=== PATIENT | male | born 1995 | race African-American/Black ===

== ENCOUNTER 2018-03-30 13:30 | Emergency (ER) | payer MEDICAID, SELFPAY | END 2018-03-30 14:31 | disposition home or self-care (01) | LOC: ERS 13:30 | DX: H66.92 Otitis media, unspecified, left ear (principal); J45.901 Unspecified asthma with (acute) exacerbation; F17.210 Nicotine dependence, cigarettes, uncomplicated | CPT/HCPCS: 94640; J7620 ==

== ENCOUNTER 2018-11-03 13:30 | Emergency (ER) | payer OTHER, SELFPAY ==
[2018-11-03] MEDS ORDERED: Ketorolac Tromethamine 30 MG/ML VIAL ONE (13:47)
--- NOTE | 2018-11-03 14:06 | RAD ---
XR Forearm Rt 2 View STANDARD: 11/03/2018 1:41 PM CLINICAL INDICATION: Pain injury COMPARISON: None. FINDINGS: Fracture:No fracture. Arthropathy:None of significance. Incidental findings:None of significance. IMPRESSION: 1. No acute osseous abnormality.
--- NOTE | 2018-11-03 14:08 | RAD ---
XR Hand Rt 3 View STANDARD: 11/03/2018 1:33 PM CLINICAL INDICATION: Injury, pain COMPARISON: None. FINDINGS: Displaced fracture involving base of fourth metacarpal with intra-articular extension of the MCP join t. Fracture fragmentation projects adjacent the dorsal aspect of the distal carpal row, donor site not d iscretely visualized although may relate to the adjacent hamate bone. IMPRESSION: Fracture of the base of the fourth metacarpal. Adjacent an avulsed fracture fragment dorsal to the carpus, as described above.
[2018-11-03] MEDS ORDERED: HYDROcodone/Acetaminophen 5/325 mg Tablet ONE (15:02)
== END 2018-11-03 15:15 | disposition home or self-care (01) ==
LOC: ERS 13:30
DX: S62.314A Displaced fracture of base of fourth metacarpal bone, right hand, initial encounter for closed fracture (principal); S62.101A Fracture of unspecified carpal bone, right wrist, initial encounter for closed fracture; F17.210 Nicotine dependence, cigarettes, uncomplicated; W22.01XA Walked into wall, initial encounter
CPT/HCPCS: 26600; 96372; J1885